=== PATIENT | male | born 1955 | race Caucasian/White ===

== ENCOUNTER 2018-08-15 11:33 | Emergency (ER) | payer OTHER ==
[~2018-08-15] VITALS: Ht 167.6 cm; Wt 70.0 kg
[2018-08-15] MEDS ORDERED: ALLOPURINOL100 MG PO (12:02)
[2018-08-15] MEDS ORDERED: LISINOPRIL10 MG PO (12:02)
[2018-08-15] MEDS ORDERED: MELOXICAM7.5 MG PO (12:03)
[2018-08-15] MEDS ORDERED: LEVOTHYROXIN125 MCG PO (12:03)
[2018-08-15] MEDS ORDERED: MOTRIN400 MG PO (13:12)
[2018-08-15 13:27] VITALS: BP 162/95
== END 2018-08-15 13:27 | disposition home or self-care (01) | DRG 605 ==
LOC: ED 11:33
DX: S80.01XA Contusion of right knee, initial encounter (principal); R51 Headache; I10 Essential (primary) hypertension; V28.4XXA Motorcycle driver injured in noncollision transport accident in traffic accident, initial encounter